=== PATIENT | male | born 1970 | race Caucasian/White ===

== ENCOUNTER → 2017-03-29 | Outpatient (CLI) | payer OTHER, MEDICARE ==
[2017-03-29 12:58] LABS: AMORPHOUS SEDIMENT,URINE 2+ /HPF; APPEARANCE,URINE CLOUDY; BILIRUBIN,URINE NEGATIVE (NEGATIVE); COLOR,URINE YELLOW; GLUCOSE, URINE NEGATIVE (NEGATIVE); KETONES,URINE NEGATIVE (NEGATIVE); LEUKOCYTE ESTERASE,URINE NEGATIVE (NEGATIVE); NITRITE,URINE NEGATIVE (NEGATIVE); PROTEIN,URINE NEGATIVE (NEGATIVE)
[2017-03-29 13:00] LABS: ABSOLUTE EOSINOPHILS # (AUTO) 0.3 10^3/uL (0.0-0.6); ABSOLUTE LYMPHOCYTES (AUTO) 2.7 10^3/uL (0.5-4.7); ABSOLUTE MONOCYTES (AUTO) 0.6 10^3/uL (0.1-1.4); ABSOLUTE NEUT (AUTO) 4.1 10^3/uL (1.7-8.2); BASOPHILS % (AUTO) 0.4 % (0-2); EOSINOPHILS % (AUTO) 3.7 % (0-6); HEMATOCRIT 46.7 % (37.9-51.0); HEMOGLOBIN 16.1 g/dL (13.5-17.0); LYMPHOCYTES % (AUTO) 35.4 % (13-45); MEAN CORPUSCULAR HEMOGLOBIN 32.2 pg (27.0-33.4); MEAN CORPUSCULAR HGB CONC 34.4 g/dL (32.0-36.0); MEAN CORPUSCULAR VOLUME 94 fl (80-97); MONOCYTES % (AUTO) 8.2 % (3-13); PLATELET COUNT 196 10^3/uL (150-450); RED BLOOD COUNT 4.98 10^6/uL (4.35-5.55); SEGMENTED NEUTROPHILS % (AUTO) 52.3 % (42-78); TOTAL CELLS COUNTED % (AUTO) 100 %; WHITE BLOOD COUNT 7.8 10^3/uL (4.0-10.5)
[2017-03-29 13:01] LABS: INTERNATIONAL RATION (INR) 1.04; PARTIAL THROMBOPLASTIN TIME 29.9 SEC (23.5-35.8); PROTHROMBIN TIME 14.3 SEC (11.4-15.4)
== END ==
LOC: OD 12:21
PROVIDERS: ATTEND Physician Assistant
DX: R79.1 Abnormal coagulation profile (principal)
CPT/HCPCS: 36415; 81001; 85025; 85610; 85730

== ENCOUNTER 2017-04-12 07:27 | Day surgery (SDC) | payer MEDICARE, OTHER ==
[2017-04-08 09:47] LABS: INTERNATIONAL RATION (INR) 0.99; PROTHROMBIN TIME 13.8 SEC (11.4-15.4)
[2017-04-08 09:48] LABS: PARTIAL THROMBOPLASTIN TIME 32.2 SEC (23.5-35.8)
[2017-04-08 09:54] LABS: HEMATOCRIT 49.3 % (37.9-51.0); HEMOGLOBIN 17.1 g/dL (13.5-17.0); MEAN CORPUSCULAR HEMOGLOBIN 32.5 pg (27.0-33.4); MEAN CORPUSCULAR HGB CONC 34.8 g/dL (32.0-36.0); MEAN CORPUSCULAR VOLUME 93 fl (80-97); PLATELET COUNT 226 10^3/uL (150-450); RED BLOOD COUNT 5.27 10^6/uL (4.35-5.55); RED CELL DISTRIBUTION WIDTH 13.1 % (11.5-14.0); WHITE BLOOD COUNT 8.6 10^3/uL (4.0-10.5)
[2017-04-08 10:14] LABS: APPEARANCE,URINE CLEAR; BILIRUBIN,URINE NEGATIVE (NEGATIVE); COLOR,URINE YELLOW; GLUCOSE, URINE NEGATIVE (NEGATIVE); KETONES,URINE NEGATIVE (NEGATIVE); LEUKOCYTE ESTERASE,URINE NEGATIVE (NEGATIVE); NITRITE,URINE NEGATIVE (NEGATIVE); PROTEIN,URINE NEGATIVE (NEGATIVE); URINE SPECIFIC GRAVITY 1.028; UROBILINOGEN,URINE NEGATIVE mg/dL (<2.0)
--- NOTE | 2017-04-08 11:04 | EKG REPORT ---
SEVERITY:- OTHERWISE NORMAL ECG - SINUS TACHYCARDIA : Confirmed by: Stacy Marcum 08-Apr-2017 11:04:01
--- NOTE | 2017-04-08 13:21 | RADIOLOGY REPORT (SQ) ---
Exam Description CHEST PA/LATERAL Completed Date/time 04/08/2017 12:10 PM Reason For Study PRE-OP Comparison None. Exam Parameters NUMBER OF VIEWS: Two views. TECHNIQUE: Digital Frontal and Lateral radiographic views of the chest acquired. Limitations: (None). Findings LUNGS AND PLEURA: No opacities, masses or pneumothorax No pleural effusion. MEDIASTINUM AND HILAR STRUCTURES: No masses or contour abnormalities. HEART AND VASCULAR STRUCTURES: Heart size is normal. No evidence for failure. (Normal appearing aorta for age.) . BONES: No acute findings. HARDWARE: None. Impression NO SIGNIFICANT RADIOGRAPHIC FINDING IN THE CHEST. Technical Documentation 2010 [employer]- All Rights Reserved
[~2017-04-12 07:27] MED LIST: CLINDAMYCIN 600 MG/D5W RTU 600 MG/50 ML RTUPB IV PRN; LACTATED RINGERS 1000 ML IV PRN; LIDOCAINE 0.5% INJ-PF (5 MG/ML) 50 ML SDV SUBCUT PRN
[2017-04-12] MEDS ORDERED: LIDOCAINE 1% INJ-PF (10 MG/ML) 30 ML SDV ONE (07:47)
[2017-04-12] MEDS ORDERED: BUPIVACAINE HCL 0.5%-EPI 1:200000 INJ/PF 30 ML VIAL ONE (07:58)
[2017-04-12] MEDS ORDERED: SODIUM BICARBONATE 10 ML IV ONE (08:43)
[2017-04-12] MEDS ORDERED: MIDAZOLAM 2 MG/2 ML INJ ONE (09:20)
[2017-04-12] MEDS ORDERED: LIDOCAINE 2% INJ-PF (20 MG/ML) 10 ML AMPUL ONE (09:20)
[2017-04-12] MEDS ORDERED: FENTANYL CITRATE INJ/PF 100 MCG/2 ML AMPUL ONE (09:20)
[2017-04-12] MEDS ORDERED: KETAMINE HCL INJ 500 MG/10 ML VIAL ONE (09:21)
[2017-04-12] MEDS ORDERED: PROPOFOL INJ 200 MG/20 ML VIAL IV ONE (09:21)
[2017-04-12] MEDS ORDERED: FENTANYL CITRATE INJ/PF 100 MCG/2 ML AMPUL IV PRN ×3 (09:41)
[2017-04-12] MEDS ORDERED: ONDANSETRON HCL INJ/PF 4 MG/2 ML SDV IV PRN (09:41)
[2017-04-12] MEDS ORDERED: PROMETHAZINE HCL INJ 25 MG/1 ML VIAL IV PRN ×2 (09:41)
[2017-04-12] MEDS ORDERED: MEPERIDINE HCL/PF INJ 25 MG/1 ML DISP.SYRIN IV PRN (09:41)
[2017-04-12] MEDS ORDERED: MORPHINE SULFATE 10 MG/ML INJ IV PRN (09:41)
[2017-04-12] MEDS ORDERED: OXYCODONE-ACETAMINOPHEN 5-325 MG TABLET PO PRN ×3 (09:41→11:31)
[2017-04-12] MEDS ORDERED: DIPHENHYDRAMINE HCL 50 MG/ML VIAL IV PRN (09:41)
[2017-04-12] MEDS ORDERED: CLINDAMYCIN PHOSPHATE INJ 300 MG/2 ML SDV ONE (10:45)
--- NOTE | 2017-04-12 11:03 | OPERATIVE REPORT E ---
Operative Report NAME: DANIELA TABARES : 1970 AGE: 46Y DATE OF SURGERY: 04/12/2017 ROOM: PREOPERATIVE DIAGNOSES: Lumbar radiculopathy and chronic back pain. POSTOPERATIVE DIAGNOSES: Lumbar radiculopathy and chronic back pain. OPERATIVE PROCEDURE: 1. Surgical implantation of right and left spinal cord stimulator and electrodes. 2. Implantation of programmable rechargeable pulse generator. 3. Complex programming and fluoroscopy for needle placement. SURGEON: JOCELYNE HAGEN M.D. COOKING CHEF: Dr. Ge Ballesteros ANESTHESIA: MAC. TISSUE AND SPECIMENS REMOVED: None. BLOOD LOSS: 10 mL. COMPLICATIONS: None PROCEDURE NOTE: After obtaining informed consent and advising the patient of the risks and benefits including serious neurological injury, bleeding, infection, failure to obtain relief, aggravation of pain, nerve injury, paralysis, allergic reaction, and , he was taken to the operating room and placed comfortably in the prone position. Comfort was assessed visually and verbally. Anesthesia applied monitors. He was prepped twice with chlorhexidine with appropriate drying time prior to draping. Fluoroscopy was then utilized to evaluate the spine. A suitable entrance site to the spine at L1-L2 was identified. The location of the lumbar incision was determined inferior to this. Post generator pocket had been predetermined. Both surgical sites were infiltrated with 1% lidocaine with bicarb followed 0.25% bupivacaine with epinephrine. Sharp and blunt dissection were utilized at both locations to obtain suitable working spaces. Hemostasis was obtained with electrocautery as necessary. In the lumbar incision, Nathan was placed and 14 gauge Tuohy needles were inserted on the right and left through a pre-anesthetized region with 1% lidocaine. The epidural space was entered at the L1-L2 interspace using loss of resistance to saline technique without heme or paresthesias noted. The octrodes were then advanced with the electrode on the right placed towards the upper portion of T8 on the right side with the left electrode at the top portion of T9. Trial of stimulation was initiated. Patient noted good stimulation in affected regions. The decision was made to secure the leads. Pursestrings were placed around each needle with 0 Mersilene followed by distal stay suture with 0 Mersilene. The left needle was removed with care being taken not to move the electrode. The anchor was then placed and secured with a pursestring and then a distal stay suture. This was repeated on the right. Care was taken to assure no significant lead movement. The subcutaneous tissues from the post generator pocket to the lumbar incision and vice versa were anesthetized with 1% lidocaine. The tunneling tool was then utilized with ease. The leads were then passed from the lumbar incision to the post generator pocket and connected to the battery. All hex nuts were secured. Impedance was tested and was felt to be satisfactory. The wounds were copiously irrigated with Betadine containing irrigation solution. They were each closed then. Technique was with 3-0 Polysorb using an inverted vertical mattress suture. The skin of both wounds came together quite nicely and they were sealed with Dermabond tape followed by Dermabond cement. When this was dry, Telfa and Tegaderm were placed. The patient was then taken to the PACU for further postoperative care and monitoring. DICTATING PHYSICIAN: JOCELYNE HAGEN M.D. [id number] PHY#: [id number] ID: [id number] JOB#: [id number] ACCT: [id number] cc:JOCELYNE HAGEN M.D. >
[2017-04-12 13:48] VITALS: BP 123/75
--- NOTE | 2017-04-12 14:18 | RADIOLOGY REPORT (SQ) ---
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 FLUOROSCOPY TIME: 3.6 minutes 11 images saved to PACS. TECHNIQUE: Intra-operative images acquired during surgical procedure to evaluate progress. NUMBER OF IMAGES: 11 LIMITATIONS: None. FINDINGS: Neurostimulator. Spans lower thoracic spine. IMPRESSION: IMAGE(S) OBTAINED DURING PROCEDURE. COMMENT: Quality ID [id number]: Final reports for procedures using fluoroscopy that document radiation exp osure indices, or exposure time and number of fluorographic images (if radiation exposure indices are not available) Please consult full operative report of the attending physician for description of the procedure. TECHNICAL DOCUMENTATION: JOB ID: [id number] [employer]- All Rights Reserved
--- NOTE | 2017-04-12 14:18 | RADIOLOGY REPORT (SQ) ---
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 FLUOROSCOPY TIME: 3.6 minutes 11 images saved to PACS. TECHNIQUE: Intra-operative images acquired during surgical procedure to evaluate progress. NUMBER OF IMAGES: 11 LIMITATIONS: None. FINDINGS: Neurostimulator. Spans lower thoracic spine. IMPRESSION: IMAGE(S) OBTAINED DURING PROCEDURE. COMMENT: Quality ID 145: Final reports for procedures using fluoroscopy that document radiation exp osure indices, or exposure time and number of fluorographic images (if radiation exposure indices are not available) Please consult full operative report of the attending physician for description of the procedure. TECHNICAL DOCUMENTATION: JOB ID: [id number] [employer]- All Rights Reserved
== END 2017-04-12 13:45 | disposition home or self-care (01) ==
LOC: OROUT 07:27
PROVIDERS: ATTEND Pain Medicine Interventional Pain Medicine
PROC: 00HU3MZ Insertion of Neurostimulator Lead into Spinal Canal, Percutaneous Approach (ICD-10-PCS; 2017-04-12)
PROC: 0JH70MZ Insertion of Stimulator Generator into Back Subcutaneous Tissue and Fascia, Open Approach (ICD-10-PCS; principal; 2017-04-12 09:30)
DX: M54.16 Radiculopathy, lumbar region (principal); G89.4 Chronic pain syndrome; Z79.01 Long term (current) use of anticoagulants; Z79.82 Long term (current) use of aspirin; Z79.899 Other long term (current) drug therapy; E78.5 Hyperlipidemia, unspecified; I10 Essential (primary) hypertension; E11.9 Type 2 diabetes mellitus without complications
CPT/HCPCS: 63685; 63650 ×2; 93005; 36415; 82962; 85027; 85610; 85730; 81001; 71046; 72080; 93010; C1778; J2250; J3490 ×6; J3010; A9270; J2704; 300